=== PATIENT | male | born 1950 | race Caucasian/White ===

== ENCOUNTER 2024-05-25 02:25 | Observation (INO) | payer MEDICARE, OTHER ==
[~2024-05-25] VITALS: Ht 177.8 cm; Wt 74.9 kg
[2024-05-25] VITALS (11 sets, daily range): BP systolic 133–152; BP diastolic 62–87; PULSE 53–73; TEMP 97.2–98
[~2024-05-25 02:25] MED LIST: NORCO 325 MG-51 TAB PO
[2024-05-25] MEDS ORDERED: LR 1,000 ML IV ONE (02:45)
[2024-05-25] MEDS ORDERED: NS 1,000 ML IV SCH (03:45)
[2024-05-25 03:54] LABS: ALBUMIN 3.9 g/dL (3.4-4.8); BILIRUBIN,TOTAL 1.3 mg/dL (0.2-1.2); CALCIUM 9.3 mg/dL (8.4-10.2); CREATININE, serum 1.02 mg/dL (0.72-1.25); POTASSIUM 4.3 mEq/L (3.5-4.5); TOTAL PROTEIN 6.6 g/dl (6.2-8.1)
[2024-05-25 03:58] LABS: BASO % 0.4 % (0.0-2.0); EOS # 0.1 K/mm3 (0.0-0.7); EOS % 1.3 % (0.0-4.0); GRAN # 4.7 K/mm3 (1.4-6.5); GRAN % 65.5 % (42.2-75.2); HEMATOCRIT 45.7 % (42.0-52.0); HEMOGLOBIN 15.6 g/dl (13.5-18.0); LYMPH # 1.6 K/mm3 (1.2-3.4); LYMPH % 22.8 % (20.0-51.0); MEAN CELL VOLUME 91 fl (80.0-100.0); MEAN CORPUSCULAR HEMOGLOBIN 31 pg (27-31); MEAN CORPUSCULAR HGB CONC 34 g/dl (33.0-37.0); MEAN PLATELET VOLUME 9.8 fl (7.4-10.4); MONO # 0.7 K/mm3 (0.1-0.6); MONO % 9.7 % (1.7-9.3); PLATELET COUNT 223 K/mm3 (130-400); REDCELL DISTRIBUTION WIDTH-CV 13.1 % (11.5-14.5)
--- NOTE | 2024-05-25 04:43 | NUR ---
Patient arrived to the floor from the ED at 0405 with supportive , admission assessment and intake done, reports he doesn't take any home medications, IV infusing well on right wrist with LR currently infusing, NPO maintained, denies pain, hospital policies orientated, questions answered, denies further needs, call light and personal items within reach, will continue to monitor.
[2024-05-25] MEDS ORDERED: Ondansetron 4 MG/2 ML VIAL IV PRN (08:30)
--- NOTE | 2024-05-25 08:37 | NUR ---
Patient resting in bed. Denies pain and nausea. He remains NPO. IVf as ordered. Awaiting EGD. Will monitor
[2024-05-25] MEDS ORDERED: PRILOTC (08:59)
[2024-05-25] MEDS ORDERED: Pantoprazole 40 MG in NS 10 ML IV SCH (09:00)
[2024-05-25] MEDS ORDERED: LR 1,000 ML IV SCH (09:15)
--- NOTE | 2024-05-25 09:38 | NUR ---
Nurse Practitioner Physician Assistant met with patient and his , Tana (ph#[phone]) to complete initial intake. Patient lives in [place] and sees Dr. Mcclain for primary care. Patient gets his medications from [facility] in [place] with no difficulties. Patient is independent with ADLS, including driving and does not use any DME. Patient stated he has a will that includes DPOA-HC, designating his . Patient plans to return home at time of discharge and is eager to be released. Discharge Plan: Home
--- NOTE | 2024-05-25 10:49 | NUR ---
Patient sitting at edge of bed, at bedside. LR to gravity and pre op check list completed.
--- NOTE | 2024-05-25 11:45 | NUR ---
D: Art Gilder stopped by room on rounds. A: Pt was walking around but content with in the room. Pt has no needs right now. P: Art Gilder informed pt that if he needed anything from the garment finisher area to let his nurse know. Art Gilder will follow up as needed.
--- NOTE | 2024-05-25 14:35 | NUR ---
Patient to endoscopy with Elva. Will await his return.
[2024-05-25] MEDS ORDERED: Lidocaine PF 2% (20 MG/ML) 5 ML VIAL ONE (15:00)
--- NOTE | 2024-05-25 17:30 | NUR ---
Patient anxious to get home. called and orders obtained. Patient tolerated ice water and pudding, not wanting to eat anything else, but did tolerate well. Vss on room air. Voided without problems. IV DC. Dressed and all discharge paperwork reviewed. He is aware of needing to call to make follow up appt with . Questions answered. Patient wheeled out with all belongings. to take him home.
== END 2024-05-25 18:46 | disposition home or self-care (01) ==
LOC: SURG 03:18
PROVIDERS: ADMIT Surgery
DX: K22.2 Esophageal obstruction (principal); T18.128A Food in esophagus causing other injury, initial encounter; K29.30 Chronic superficial gastritis without bleeding
CPT/HCPCS: C1726; G0378; J2470; J2704; J7030; J7120

== ENCOUNTER 2024-06-15 09:31 | Day surgery (SDC) | payer MEDICARE ==
[~2024-06-15] VITALS: Ht 177.8 cm; Wt 76.4 kg
[~2024-06-15 09:31] MED LIST changes: +LR 1,000 ML IV SCH; +Ondansetron 4 MG/2 ML VIAL IV PRN; +PRILOTC
[2024-06-15 10:10] VITALS: BP 155/86; PULSE 67; TEMP 97
[2024-06-15 11:54] VITALS: BP 137/60; PULSE 65
[2024-06-15 12:15] VITALS: BP 123/77; PULSE 61
[2024-06-15 12:30] VITALS: BP 137/81; PULSE 66
--- NOTE | 2024-06-15 18:53 | NUR ---
1154 PATIENT RETURNS TO [facility] VIA CART. PT AWAKE AND ALERT. RESPIRATIONS UNLABORED. AMBULATED TO RECLINER CHAIR WITH 2:1 SBA. PT DENIES NAUSEA OR ABDOMINAL PAIN. HOOKED UP TO MONITOR AND VS OBTAINED. CALL LIGHT AT SIDE AND PRESENT. 1200 PATIENT TOLERATING JELLO AND PEPSI WITHOUT NAUSEA OR DIFFICULTY SWALLOWING. 1210 IN ROOM SPEAKING WITH PATIENT. 1220 D/C INSTRUCTIONS REVIEWED WITH PATIENT. PT VERBALIZED UNDERSTANDING AND A COPY OF INSTRUCTIONS PROVIDED IN D/C FOLDER. 1235 PATIENT DRESSES SELF. 1245 PATIENT DISCHARGED FROM UNIT VIA W/C TO A PERSONAL VEHICLE. PT LEFT HOSPITAL IN STABLE CONDITION.
== END 2024-06-15 12:45 | disposition home or self-care (01) ==
LOC: SDCO 09:31
DX: K22.2 Esophageal obstruction (principal); K22.0 Achalasia of cardia; K31.89 Other diseases of stomach and duodenum
CPT/HCPCS: C1726; J2704; J7120